=== PATIENT | female | born 1980 | race Two or more races ===

== ENCOUNTER 2024-11-20 15:20 | Outpatient (CLI) | payer OTHER | END 2024-11-20 15:21 | disposition home or self-care (01) | LOC: PRENATAL 15:20 | DX: O44.00 Complete placenta previa NOS or without hemorrhage, unspecified trimester (principal); O36.8199 Decreased fetal movements, unspecified trimester, other fetus; O09.529 Supervision of elderly multigravida, unspecified trimester; Z3A.32 32 weeks gestation of pregnancy ==